=== PATIENT | male | born 1945 | race Caucasian/White ===

== ENCOUNTER 2022-06-06 09:56 | Emergency (ER) | payer OTHER, MEDICARE ==
[~2022-06-06] VITALS: Ht 167.6 cm; Wt 72.3 kg
[2022-06-06 11:33] VITALS: BP 144/78
== END 2022-06-06 11:35 | disposition home or self-care (01) | DRG 153 ==
LOC: ED 09:56
DX: J06.9 Acute upper respiratory infection, unspecified (principal); Z20.822 Contact with and (suspected) exposure to COVID-19; Z85.9 Personal history of malignant neoplasm, unspecified

== ENCOUNTER 2024-05-29 15:45 | Emergency (ER) | payer OTHER, MEDICARE ==
[~2024-05-29] VITALS: Ht 167.6 cm; Wt 72.0 kg
[2024-05-29] MEDS ORDERED: AMOX/K CLAV875 M1 PO (16:17)
[2024-05-29 16:48] VITALS: BP 137/72
== END 2024-05-29 16:49 | disposition home or self-care (01) | DRG 153 ==
LOC: ED 15:45
DX: J06.9 Acute upper respiratory infection, unspecified (principal); H92.02 Otalgia, left ear